=== PATIENT | female | born 1960 | race Two or more races ===

== ENCOUNTER 2022-09-17 21:10 | Emergency (ER) | payer OTHER ==
[~2022-09-17] VITALS: Ht 170.2 cm; Wt 59.0 kg
[2022-09-17] MEDS ORDERED: IBUPROFEN 600 MG TABLET PO ONE (22:00)
[2022-09-17] MEDS ORDERED: BACI/NEOM/POLY B OINT PKT 1 UDPKT PACKET TP ONE (22:00)
[2022-09-17] MEDS ORDERED: TDAP [DIPH/PERTUSSIS/TET] 0.5 ML VIAL IM ONE (22:00)
[2022-09-17] MEDS ORDERED: BACI/NEOM/POLY B OINT PKT 1 UDPKT PACKET ONE (22:07)
[2022-09-17] MEDS ORDERED: IBUPROFEN 600 MG TABLET ONE (22:07)
[2022-09-17] MEDS ORDERED: AMOX-430 PO (22:12)
[2022-09-17 22:35] VITALS: BP 121/70
== END 2022-09-17 22:36 | disposition home or self-care (01) ==
LOC: ER 21:34
DX: S61.211A Laceration without foreign body of left index finger without damage to nail, initial encounter (principal); Z79.899 Other long term (current) drug therapy; W54.0XXA Bitten by dog, initial encounter; Y93.89 Activity, other specified; Y92.89 Other specified places as the place of occurrence of the external cause; Y99.8 Other external cause status
CPT/HCPCS: 73130-TC

== ENCOUNTER 2024-05-17 05:41 | Emergency (ER) | payer BC ==
[~2024-05-17] VITALS: Ht 162.6 cm; Wt 53.5 kg
[~2024-05-17 05:41] MED LIST: AMOX-430 PO
[2024-05-17 06:20] LABS: BASOPHILS % (AUTO) 0.5 % (0.0-2.0); EOSINOPHILS # (AUTO) 0.1 K/uL (0.0-0.7); EOSINOPHILS % (AUTO) 1.8 % (0.0-6.0); HEMATOCRIT 38 % (33-45); HEMOGLOBIN 12.7 g/dL (11.5-14.8); LYMPHOCYTES # (AUTO) 1.4 K/uL (0.8-4.8); LYMPHOCYTES % (AUTO) 32.2 % (20.0-44.0); MEAN CORPUSCULAR HEMOGLOBIN 32 PG (26.0-33.0); MEAN CORPUSCULAR HGB CONC 33 g/dl (31.0-36.0); MEAN CORPUSCULAR VOLUME 96 fL (82-100); MONOCYTES # (AUTO) 0.5 K/uL (0.1-1.30); MONOCYTES % (AUTO) 10.9 % (2.0-12.0); NEUTROPHILS # (AUTO) 2.4 K/uL (1.8-8.9); NEUTROPHILS % (AUTO) 54.6 % (43.0-81.0); PLATELET COUNT (AUTO) 190 K/uL (150-450); RED BLOOD CELL COUNT(AUTO) 4.02 MIL/uL (4.0-5.2); RED CELL DISTRIBUTION WIDTH 13.8 % (11.5-15.0); WHITE BLOOD COUNT (AUTO) 4.3 K/uL (4.3-11.0)
[2024-05-17 06:27] LABS: CALCIUM, SERUM 9.5 mg/dL (8.5-10.1); CARBON DIOXIDE 30 mmol/L (21-32); CHLORIDE 105 mmol/L (98-107); CREATININE 0.9 mg/dL (0.6-1.3); GLUCOSE 98 mg/dL (74-106); SODIUM SERUM 143 mmol/L (136-145); UREA NITROGEN, BLOOD 23 mg/dL (7-18)
[2024-05-17 06:38] LABS: NT-PRO BNP 47 pg/mL (0-125)
[2024-05-17 07:56] VITALS: BP 108/75; TEMP 97.8; O2SAT 98
== END 2024-05-17 07:57 | disposition home or self-care (01) ==
LOC: ER 05:42
DX: R07.9 Chest pain, unspecified (principal); E03.9 Hypothyroidism, unspecified; F32.A Depression, unspecified; Z85.3 Personal history of malignant neoplasm of breast
CPT/HCPCS: 36415; 71045-TC; 80048-TC; 83880; 84484-TC; 85025-TC

== ENCOUNTER 2025-02-10 19:19 | Emergency (ER) | payer MEDICARE, BC ==
[~2025-02-10] VITALS: Ht 162.6 cm; Wt 54.9 kg
[2025-02-10 21:27] LABS: APPEARANCE,URINE CLEAR (CLEAR); BLOOD, URINE 1+ Ery/uL (NEGATIVE); LEUKOCYTE ESTERASE ,URINE NEGATIVE (NEGATIVE); NITRITE, URINE NEGATIVE (NEGATIVE); UGLUCOSE NEGATIVE (NEGATIVE)
[2025-02-10 21:30] LABS: CALCIUM, SERUM 9.3 mg/dL (8.5-10.1); CREATININE 0.7 mg/dL (0.6-1.3); SODIUM SERUM 139.0 mmol/L (136-145); UREA NITROGEN, BLOOD 19.0 mg/dL (7-18)
[2025-02-10 21:31] LABS: PLATELET COUNT (AUTO) 195 K/uL (150-450); RED BLOOD CELL COUNT(AUTO) 3.77 MIL/uL (4.0-5.2); RED CELL DISTRIBUTION WIDTH 14.0 % (11.5-15.0); WHITE BLOOD COUNT (AUTO) 4.6 K/uL (4.3-11.0)
[2025-02-10 21:43] LABS: ASPARTATE AMINOTRANSFERASE 18.0 U/L (15-37); TOTAL PROTEIN, SERUM 7.4 g/dL (6.4-8.2)
[2025-02-10 21:46] LABS: ADD URINE CULTURE NO
[2025-02-10] MEDS: IV NS 0.9% 1,000 ML BAG IV ONE (22:06)
[2025-02-10] MEDS: FAMOTIDINE/PF INJ 20 MG/2 ML VIAL IV ONE (22:09)
[2025-02-10] MEDS: MAG HYDROX/AL HYDROX/SIMETH 30 ML UDC PO ONE (22:09)
[2025-02-10] MEDS ORDERED: PANT40TA49 PO (22:50)
[2025-02-10 23:21] VITALS: BP 135/75; TEMP 98; O2SAT 97
== END 2025-02-10 23:21 | disposition home or self-care (01) ==
LOC: ER 19:25
DX: R10.13 Epigastric pain (principal); R11.0 Nausea; E03.9 Hypothyroidism, unspecified; F32.A Depression, unspecified; K59.00 Constipation, unspecified; Z79.899 Other long term (current) drug therapy; Z85.3 Personal history of malignant neoplasm of breast
CPT/HCPCS: 99285; 96374; 76705; 96361; 85025; 80048; 83690; 80076; 81001; 36415; J1308; J7030

== ENCOUNTER 2025-05-30 12:39 | Emergency (ER) | payer MEDICARE, BC ==
[~2025-05-30] VITALS: Ht 162.6 cm; Wt 55.8 kg
[~2025-05-30 12:39] MED LIST changes: +PANT40TA49 PO
[2025-05-30 13:00] VITALS: BP 133/77; TEMP 98.4; O2SAT 98
== END 2025-05-30 13:43 | disposition home or self-care (01) ==
LOC: ER 12:49
DX: S06.0X0A Concussion without loss of consciousness, initial encounter (principal); E03.9 Hypothyroidism, unspecified; Z79.899 Other long term (current) drug therapy; W22.8XXA Striking against or struck by other objects, initial encounter; Y93.89 Activity, other specified; Y92.89 Other specified places as the place of occurrence of the external cause; Y99.8 Other external cause status